=== PATIENT | male | born 1965 | race Caucasian/White ===

== ENCOUNTER → 2016-08-02 | Outpatient (CLI) | payer OTHER ==
--- NOTE | 2016-08-02 13:40 | DI ---
INDICATION: [email or web address]: DIAGNOSTIC TESTING PROCEDURE: CHEST 2-VIEWS UPRIGHT (PA \T\ LAT) Encounter: Initial COMPARISON: None FINDINGS: The lungs are clear without evidence of focal abnormal airspace opacity. There is no pleural effusion or pneumothorax. The heart size, mediastinal contours and pulmonary vascularity are within normal limits. There is no significant skeletal abnormality. IMPRESSION: No acute cardiopulmonary disease. .
--- NOTE | 2016-08-02 13:41 | DI ---
Indication: [email or web address].REASON: DIAGNOSTIC TESTING PROCEDURE: CERVICAL SPINE 4 OR 5 VIEWS: Encounter: Initial Comparison: None Findings: Alignment of the cervical spine is straightened with loss of the normal lordosis. The C6 and C7 vertebra are not seen on the lateral view. The cervicothoracic junction cannot be evaluated. No acute fracture or subluxation of the upper to mid cervical spine. The oblique views show left bony neural foraminal stenosis at the C3-C4 level and mild right-sided bony neural foraminal narrowing at this level as well. Mild disk space narrowing at C5-C6. Impression: Degenerative change as above. .
--- NOTE | 2016-08-02 14:09 | DI ---
Indication: ITS.REASON: DIAGNOSTIC TESTING PROCEDURE: SHOULDER RIGHT 2-3 VIEWS: Encounter: Initial Comparison: None Findings: There is no acute fracture, dislocation or malalignment identified. Mild acromioclavicular degenerative change. Glenohumeral joint space is normal. Impression: No acute osseous abnormality. .
--- NOTE | 2016-08-02 14:10 | DI ---
Indication: ITS.REASON: DIAGNOSTIC TESTING PROCEDURE: SHOULDER LEFT 2-3 VIEWS: Encounter: Initial Comparison: None Findings: There is no acute fracture, dislocation or malalignment identified. Joint spaces are normal. Impression: No acute osseous abnormality. .
--- NOTE | 2016-08-02 14:11 | DI ---
Indication: ITS.REASON: DIAGNOSTIC TESTING PROCEDURE: THORACIC SPINE 2 VIEW: Encounter: Initial Comparison: None Findings: Alignment of the thoracic spine shows minimal curvature. No acute fracture or subluxation seen. The vertebral body heights and disk spaces are maintained. Impression: No acute osseous abnormality .
--- NOTE | 2016-08-02 14:15 | DI ---
Indication: [email or web address].REASON: DIAGNOSTIC TESTING PROCEDURE: KNEE LEFT 2 VIEW: Encounter: Initial Comparison: None Findings: There is no acute fracture, dislocation or malalignment identified. Joint spaces are normal. Impression: No acute osseous abnormality. .
--- NOTE | 2016-08-02 14:15 | DI ---
Indication: ITS.REASON: DIAGNOSTIC TESTING PROCEDURE: KNEE RIGHT 2 VIEW: Encounter: Initial Comparison: None Findings: There is no acute fracture, dislocation or malalignment identified. Impression: No acute osseous abnormality. .
--- NOTE | 2016-08-02 14:15 | DI ---
Indication: ITS.REASON: DIAGNOSTIC TESTING PROCEDURE: LUMBAR SPINE 3 VIEWS: Encounter: Initial Comparison: None Findings: Alignment of the thoracic spine is within normal limits. Posterior and anterior spinal fusion extending from L3 through S1. Bilateral pedicle screws and rods. Interbody bone cages at L3-L4, L4-L5 and L5-S1. No evidence of hardware loosening. The spinal fusion rods are discontinuous at the L4 level but this may be by design. Recommend correlation with patient's surgical history. Posterior decompressions noted at L5. No acute fracture seen. No significant disk space narrowing. Degenerative facet change at L4-S1. Impression: Spine surgeries. .
--- NOTE | 2016-08-02 14:16 | DI ---
Indication: ITS.REASON: DIAGNOSTIC TESTING PROCEDURE: HIP BILATERAL 2 VIEW: Encounter: Initial Comparison: None Findings: Left hip: No acute fracture or dislocation. Joint space is normal. Right hip: No acute fracture or dislocation. Joint space is normal. Impression: Left hip: Normal exam Right hip: Normal exam .
--- NOTE | 2016-08-02 14:45 | DI ---
Indication: ITS.REASON: DIAGNOSTIC TESTING PROCEDURE: HAND RIGHT 3 VIEW: Encounter: Initial Comparison: None Findings: There is no acute fracture, dislocation or malalignment identified. Impression: No acute osseous abnormality. .
== END ==
LOC: IMA 12:11
DX: Z02.9 Encounter for administrative examinations, unspecified (principal)